=== PATIENT | male | born 1975 | race Caucasian/White ===

== ENCOUNTER 2016-07-09 12:12 | Emergency (ER) | payer SELFPAY ==
--- NOTE | 2016-07-09 13:57 | DIAGNOSTIC IMAGING REPORT ---
PROCEDURE: XR CHEST 2 VIEW INDICATION: CONGESTION TECHNIQUE: PA and lateral views. COMPARISON: Chest 05/26/2011 and 07/10/2009 FINDINGS: There is a new left lower lobe infiltrate. The right lung remains clear. Heart and mediastinum are normal. Thorax is normal. IMPRESSION: 1. New left lower lobe infiltrate
--- NOTE | 2016-07-09 18:01 | ED ORDER SUMMARY ---
..... Patient: JUANJOSE OSBORNE OrderSheet [facility] VisitID: [id number] [address] [place] [address] 41y, M Registration Date/Time: 07/09/2016 ORDER SHEET Weight: 147.4 kg (stated) Allergies: No Known Drug Allergy GENERAL ORDERS: Chest 2V (20 lb weight gain ( edema abdomen, testicles, bilateral edema)) Urgent (13:07/09/2016 JCoates) (13:41 SRoberts R.N.) CBC w Diff Urgent (13:07/09/2016 JCoates) (Ack 13:44 RKaruga) (15:58 SRoberts R.N.) CMP Urgent (:07/09/2016 JCoates) (Ack 13:44 RKaruga) (15:58 SRoberts R.N.) PT with INR Urgent (13:07/09/2016 JCoates) (Ack 13:44 RKaruga) (15:58 SRoberts R.N.) PTT Urgent (13:07/09/2016 JCoates) (Ack 13:44 RKaruga) (15:58 SRoberts R.N.) Troponin-I Urgent (13:07/09/2016 JCoates) (Ack 13:44 RKaruga) (15:58 SRoberts R.N.) UA-Culture if indicated Urgent (13:07/09/2016 JCoates) (Ack 13:44 RKaruga) (16:13 RKaruga) BNP Urgent (13:07/09/2016 JCoates) (Ack 13:44 RKaruga) (15:58 SRoberts R.N.) EKG - ER Stat (13:07/09/2016 JCoates) (13:43 RKaruga) Troponin-I Urgent (16:59 07/09/2016 JCoates) (Ack 17:30 RKaruga) (19:01 SRoberts R.N.) MEDICATION ORDERS: IV FLUIDS: IV NS : initial bolus none -, then TKO - (NOW) (13:07/09/2016 JCoates) (Ack 13:41 SRoberts R.N.) (Cancelled: Physician Order13:43 SRoberts R.N.) IV Saline Lock (13:24 07/09/2016 JCoates) (13:41 SRoberts R.N.) Lasix IV 100 mg (NOW) (15:38 07/09/2016 JCoates) (Ack 15:58 SRoberts R.N.) (16:16 SRoberts R.N.) Rocephin IV 1 gm/50mL (NOW) (15:38 07/09/2016 JCoates) (Ack 15:58 SRoberts R.N.) (16:23 SRoberts R.N.) ORDER SHEET NOTES: [Electronically signed by Taty Mcconnell R.N. (19:06 07/09/2016)] [Electronically signed by Hong Jose (22:55 07/09/2016)] [Electronically locked/signed by Taty Mcconnell R.N. (19:06 07/09/2016)]
--- NOTE | 2016-07-09 18:01 | ED CLINICAL REPORT ---
Clinical Report - Physicians/Mid Levels [facility] [address] [place] [address] 07/09/2016 12:15 Patient: JUANJOSE OSBORNE Time Seen: 13:24. Arrived- By private vehicle. Historian- patient. HISTORY OF PRESENT ILLNESS Chief Complaint: swelling of the abdomen, penis and testicles,and bilateral lower legs. At its maximum, severity described as severe. When seen in the E.D., severity described as severe. Modifying factors. Not worsened by anything. Not relieved by anything. This started 2 weeks ago and is still present but is improving. The patient has had loss of appetite. No weight loss. No decreased urine output. (Patient says about 2 weeks ago he started to get swelling in his abdomen and legs. He currently doesn't have a primary care provider or insurance so he ordered some Lasix online. He says he started this about a week ago. Around the day he started his testicles became swollen and painful. He says the Lasix is helping, however.). Similar symptoms previously: None. Recent medical care: Not recently seen/assessed. REVIEW OF SYSTEMS No chills, fever, ear pain, nasal congestion or sore throat. No calf pain, chest pain, black stools, bloody stools or constipation. No diarrhea, nausea, vomiting, hematuria or penile discharge. No back pain, diabetic symptoms, easy bruising or difficulty with urination. The patient has had a moderate cough (2 weeks ago accompanied by runny nose and sore throat but now better.). He has had abdominal pain, testicular pain, and hesitancy. He has had multiple skin lesions (chronically). All systems otherwise negative, except as recorded above. PAST HISTORY See nurses notes. Hypertension. No history of heart disease, lung disease, renal disease, neurological disease or diabetes mellitus. SOCIAL HISTORY Never smoker. No drug use. ADDITIONAL NOTES The nursing notes have been reviewed. PHYSICAL EXAM Appearance: Alert. No acute distress. Eyes: Pupils equal, round and reactive to light. Eyes normal inspection. ENT: Nose normal. Pharynx normal. Neck: Normal inspection. Neck supple. No JVD or lymphadenopathy. CVS: Tachycardia. Heart sounds normal. Rhythm normal. Respiratory: No respiratory distress. Breath sounds normal. No rales, rhonchi or wheezes. Abdomen: Nontender. Distention with dullness to percussion. Obese. No guarding. Back: Normal inspection. No CVA tenderness. : Severe right-sided and left-sided scrotal swelling with tenderness. No erythema, fluctuance or ulceration. Penile abnormality (Significant edemato include the foreskin.). No tenderness noted. No urethral discharge. Skin: Skin warm and dry. Normal skin turgor. Generalized, erythematous, macular, papular skin rash. No petechial or vesicular skin rash. Neuro: Oriented X 3. No motor deficit. No sensory deficit. LABS, X-RAYS, AND EKG EKG: EKG time: (13:36). No acute ischemia. Tachycardia. LVH. Right axis deviation. Normal ST and T waves. Prior EKG unavailable. The EKG appears to be a good tracing. Chest X-ray: Patchy infiltrate in the left lower lobe. No well-defined infiltrate on the left. Normal heart size. No fracture. Views: PA and lateral. The X-rays were interpreted by the radiologist. Laboratory Tests: UA-Culture if indicated: (FIDELINA: 07/09/2016 16:10) ( MsgRcvd 07/09/2016 16:38) Final results Test Result Flag Units (Reference) URINE COLOR YELLOW URINE APPEARANCE CLEAR URINE GLUCOSE NEGATIVE (NEGATIVE) URINE BILIRUBIN NEGATIVE (NEGATIVE) URINE KETONE NEGATIVE (NEGATIVE) URINE SPECIFIC GRAVITY 1.010 (1.010-1.030) URINE PH 6.5 (5.0-8.0) URINE PROTEIN 1+ (NEGATIVE) URINE UROBILINOGEN 0.2 EU/dL (0.2-1.0) URINE NITRITE NEGATIVE (NEGATIVE) URINE BLOOD NEGATIVE (NEGATIVE) URINE LEUK ESTERASE NEGATIVE (NEGATIVE) URINE RBC NONE SEEN rbc/hpf (0-1) URINE WBC RARE wbc/hpf (0-1) URINE EPITHELIAL CELLS RARE EPI/hpf (0-5) URINE BACTERIA NONE SEEN (NONE SEEN) URINE COMMENT CULT NOT INDICATED URINE CULTURES ARE SET-UP BASED ON THE FOLLOWING CRITERIA:POSITIVE NITRITEPOSITIVE LEUKOCYTE ESTERASEGREATER THAN 10 WHITE BLOOD CELLSMODERATE (2+) OR GREATER BACTERIA CBC w Diff: (FIDELINA: 07/09/2016 13:38) ( [facility] 07/09/2016 13:57) Final results Test Result Flag Units (Reference) WHITE BLOOD COUNT 8.2 K/uL (4.5-11.5) RED BLOOD COUNT 6.15 *H M/uL (4.50-5.90) HEMOGLOBIN 15.4 gm/dL (13.5-17.5) HEMATOCRIT 48.5 % (41.0-53.0) MEAN CELL VOLUME 79 L fL (80-100) MEAN CORPUSCULAR HGB 25 L pg (26-34) MEAN CORPUSCULAR HGB CONC 32 g/dL (31-37) RED CELL DISTRIBUTION WIDTH 17.8 H % (11.6-14.8) PLATELET COUNT 257 K/uL (150-400) NEUTROPHIL % 73.3 % (50-75) LYMPH % 13.6 L % (25-40) MONO % 10.0 % (3-14) EOSINOPHIL % 2.7 % (0-4) BASOPHIL % 0.4 % (0-2) PT with INR: (FIDELINA: 07/09/2016 13:38) ( [facility] 07/09/2016 13:58) Final results Test Result Flag Units (Reference) INR 1.1 (0.8-1.2) Low Intensity Therapy: INR 1.5-2.0 PT range 18.5-23.1Mod.Intensity Therapy: INR 2.0-3.0 PT range 23.1-31.5High Intensity Therapy: INR 2.5-3.5 PT range 27.4-35.5High Intensity Therapy 2: INR 3.0-4.0 PT range 31.5-39.3 APTT 30 SECONDS (24-34) Troponin-I: (FIDELINA: 07/09/2016 17:25) ( [facility] 07/09/2016 17:52) Final results Test Result Flag Units (Reference) TROPONIN I 0.05 ng/mL (0.00-1.5) TROPONIN REFERENCE RANGE:<0.1 NEGATIVE0.1-1.5 INDETERMINANT>1.5 POSITIVE BNP: (FIDELINA: 07/09/2016 13:38) ( MsgRcvd 07/09/2016 14:15) Final results Test Result Flag Units (Reference) B-TYPE NATRIURETIC PEPTIDE 426 H pg/ml (5-100) CMP: (FIDELINA: 07/09/2016 13:38) ( MsgRcvd 07/09/2016 14:20) Final results Test Result Flag Units (Reference) GLUCOSE 146 H mg/dL (70-110) BUN 16 mg/dL (7-18) CREATININE 1.2 mg/dL (0.6-1.3) Estimated GFR >60 mL/min Estimated GFR- >60 mL/min Note: Persistent reduction over 3 months in eGFR<60 mL/min/1.73 m2 defines CKD. Patients with eGFR values>=60 mL/min/1.73 m2 may also have CKD if evidence ofpersistent proteinuria. Additional information may be foundat www.kidney.org. SODIUM 142 mmol/L (136-145) POTASSIUM 3.2 L mmol/L (3.5-5.1) CHLORIDE 101 mmol/L (98-107) CARBON DIOXIDE 33 H mmol/L (21-32) CALCIUM 8.9 mg/dL (8.5-10.1) TOTAL PROTEIN 7.0 g/dL (6.4-8.2) ALBUMIN 3.4 g/dL (3.3-5.0) BILIRUBIN, TOTAL 1.0 mg/dL (0.0-1.0) ALKALINE PHOSPHATASE 65 U/L (46-116) AST (SGOT) 26 U/L (15-37) ALT (SGPT) 29 U/L (12-78) TROPONIN I 0.07 ng/mL (0.00-1.5) TROPONIN REFERENCE RANGE:<0.1 NEGATIVE0.1-1.5 INDETERMINANT>1.5 POSITIVE . PROGRESS AND PROCEDURES Course of Care: 13:24. His concern is his testicles but his main issue is new-onset significant edema. He'll unfortunately need a significant workup to look for an identifiable cause. He denies any previous symptoms of chest pain, hemoptysisor sudden onset shortness of breath. No previous history of renal/liver disease. 15:30 07/09/16. Left lower lobe hazy infiltrate. BNP is also slightly elevated. Waiting to see if he can urinate. If so, we'll push IV Lasix. 16:59 07/09/16. He is getting Lasix and still waiting on the UA results. Will repeat troponin prior to discharge. 17:52 07/09/16. Repeat troponin still within normal limits. Doubt dropping troponin but he still should probably see cardiology as an outpatient. 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 He has multiple possible causes for his edema to include CHF, renal disease untreated hypertension or malignancy and we discussed all other possible causes and why he needs to follow-up for further evaluation. Patient says he'll follow-upby phone tomorrow. I'll give him the contact information for nephrology as well that he should probably also see cardiology as recommended by his primary care provider. Disposition: Discharged in stable condition. CLINICAL IMPRESSION Pneumonia. Atypical presentation with a delayed diagnosis. Vital signs recorded and reviewed; empiric antibiotics given in the ED. Mild hyperglycemia Uncontrolled hypertension. Hypokalemia (1) Peripheral edema, etiology unclear). (proteinuria). INSTRUCTIONS Rest at home for two days. No dietary restrictions. Warnings: Further evaluation is necessary in order to assess the possibility of serious illness. It is very important to follow up with a physician. GENERAL WARNINGS: Return or contact your physician immediately if your condition worsens or changes unexpectedly, if not improving as expected, or if other problems arise. Specifically return if vomiting, breathing difficulty or fever worsens. Prescription Medications: Lasix 40 mg: take 1 orally every 12 hours. Dispense twenty (20). No refills. Substitution is permissible. Doxycycline 100 mg: Take 1 capsule orally every 12 hours for 10 days. No refill. Potassium Chloride 20 mEq: take 1 orally every 12 hours - Dispense twenty (20) No refills. Follow-up: Return to the emergency department in two days if not better. Understanding of the discharge instructions verbalized by patient. Follow-up with: Jose Curz Hope MD, Neurology, , [phone], [place], [phone] Follow up even if well. Call for the next available appointment. Follow-up with: [facility], , , [address], [place], [id number] Follow up tomorrow even if well. Call for the next available appointment. Summary of care provided to patient and follow-up provider via fax. (Electronically signed by Hong Jose, 07/09/2016 22:55)
--- NOTE | 2016-07-09 18:01 | ED ORDER SUMMARY ---
..... Patient: JUANJOSE OSBORNE OrderSheet [facility] VisitID: [id number] [address] [place] [address] 41y, M Registration Date/Time: 07/09/2016 ORDER SHEET Weight: 147.4 kg (stated) Allergies: No Known Drug Allergy GENERAL ORDERS: Chest 2V (20 lb weight gain ( edema abdomen, testicles, bilateral edema)) Urgent (13:07/09/2016 JCoates) (13:41 SRoberts R.N.) CBC w Diff Urgent (13:07/09/2016 JCoates) (Ack 13:44 RKaruga) (15:58 SRoberts R.N.) CMP Urgent (:07/09/2016 JCoates) (Ack 13:44 RKaruga) (15:58 SRoberts R.N.) PT with INR Urgent (13:07/09/2016 JCoates) (Ack 13:44 RKaruga) (15:58 SRoberts R.N.) PTT Urgent (13:07/09/2016 JCoates) (Ack 13:44 RKaruga) (15:58 SRoberts R.N.) Troponin-I Urgent (13:07/09/2016 JCoates) (Ack 13:44 RKaruga) (15:58 SRoberts R.N.) UA-Culture if indicated Urgent (13:07/09/2016 JCoates) (Ack 13:44 RKaruga) (16:13 RKaruga) BNP Urgent (13:07/09/2016 JCoates) (Ack 13:44 RKaruga) (15:58 SRoberts R.N.) EKG - ER Stat (13:07/09/2016 JCoates) (13:43 RKaruga) Troponin-I Urgent (16:59 07/09/2016 JCoates) (Ack 17:30 RKaruga) (19:01 SRoberts R.N.) MEDICATION ORDERS: IV FLUIDS: IV NS : initial bolus none -, then TKO - (NOW) (13:07/09/2016 JCoates) (Ack 13:41 SRoberts R.N.) (Cancelled: Physician Order13:43 SRoberts R.N.) IV Saline Lock (13:24 07/09/2016 JCoates) (13:41 SRoberts R.N.) Lasix IV 100 mg (NOW) (15:38 07/09/2016 JCoates) (Ack 15:58 SRoberts R.N.) (16:16 SRoberts R.N.) Rocephin IV 1 gm/50mL (NOW) (15:38 07/09/2016 JCoates) (Ack 15:58 SRoberts R.N.) (16:23 SRoberts R.N.) ORDER SHEET NOTES: [Electronically signed by Taty Mcconnell R.N. (19:06 07/09/2016)] [Electronically signed by Hong Jose (22:55 07/09/2016)] [Electronically locked/signed by Taty Mcconnell R.N. (19:06 07/09/2016)]
--- NOTE | 2016-07-09 18:01 | ED NURSING NOTES ---
Clinical Report - Nurses [facility] [address] [place] [address] 07/09/2016 12:15 Patient: JUANJOSE OSBORNE TRIAGE Triage time 1220. Acuity: LEVEL 3. Chief Complaint: TESTICULAR PAIN. Alert. SWAPAN COMA SCORE: Swapna Coma Scale: 15- eyes open spontaneously (4); best verbal response- oriented x 4 (5); best motor response- obeys commands (6). --12:30 Nusrat Brandon R.N. 12:25 07/09/16. BP: 183/145. HR: 125. RR: 22 (unlabored). O2 saturation: 94% on room air. Temp: 98 F (oral). Pain level now: 06/19. --12:30 Nusrat Brandon R.N. Weight: 147.4 kg stated. Height/Length: 70 inches Per Patient. BMI: 46.6. --12:20 Nusrat Brandon R.N. Medications Furosemide Oral 40 mg, 2x a day. --12:27 Nusrat Brandon R.N. Allergies No Known Drug Allergy. --12:27 Nusrat Brandon R.N. Medication/allergy information source: the patient. --12:30 Nusrat Brandon R.N. History Historian: family. Primary physician (none). ( pt c/o testicular pain x 6 days. pt states discomfort began last Wednesday and swelling noted by Wednesday.). Onset. (6 days ago). He has had testicular pain. Treatment FUND DEVELOPMENT MANAGER: None. SOCIAL HX: Never smoker. No alcohol use or drug use. ABUSE ASSESSMENT: No report of abuse. FALL RISK ASSESSMENT: Fall risk assessment completed. No fall risk identified. NUTRITIONAL RISK ASSESSMENT: The nutritional risk assessment revealed no deficiencies. FUNCTIONAL ASSESSMENT: Functional assessment: no impairments noted. LEARNING NEEDS ASSESSMENT: The learning needs assessment revealed no barriers. SKIN INTEGRITY ASSESSMENT: Skin integrity risk assessment completed. No skin integrity risk identified. --12:30 Nusrat Brandon R.N. PROBLEMS: Sinus Problems. Dental Abscess. Dental Caries. Bronchitis. Immunizations. Gastroesophageal Reflux. Bowel Obstruction. Hypertension. --12:28 Nusrat Brandon R.N. Sleep Apnea [RuleOut]. --12:28 Nusrat Brandon R.N. ADDITIONAL SURGERIES: Hernia Repair. Umbilical Hernia Repair. --12:28 Nusrat Brandon R.N. Interventions ID band on patient. To treatment room. --12:30 Nusrat Brandon R.N. PHYSICAL ASSESSMENT 12:30 pt c/o testicular pain and swelling. Deferred assessment to MD. Ambulatory to room. GENERAL / NEURO / PSYCH: Alert. Oriented X 4. Appears in no acute distress. HEENT: Mucous membranes are pink. RESPIRATORY: Respirations not labored. SKIN: Skin is warm and dry. --12:40 Nusrat Brandon R.N. NURSING PROGRESS NOTES Patient gowned. Head of bed elevated. Two patient identifiers checked. Call light placed in reach. Side rails up x 1. Bed placed in lowest position. Brakes of bed on. Patient ready for evaluation. --12:30 Nusrat Brandon R.N. 13:41 07/09/2016 Site #1 started via IV in the left hand with an 20g angiocath, with aseptic technique and good blood return; one attempt. Blood drawn: rainbow set. Labeled in the presence of the patient and sent to the lab. Saline lock flushed with 10 mL saline. --13:41 Taty Mcconnell R.N. EKG time: (13:36). EKG was performed by a tech and shown to the ED physician. --13:57 Estephania Madrigal 16:06 07/09/2016 Started 1 gm of Rocephin (CefTRIAXone Sodium) IVPB in bag #1 50 mL; at 50 mL/hr over 20 minute(s) via site #1 via IV pump. Allergies verified and confirmed 5 rights. IV patency established. IV site checked: no pain, redness, or swelling. IV flushed thoroughly pre- and post-medication administration. --16:23 Taty Mcconnell R.N. 16:15 07/09/16. Patient ID band checked for patient name: patient confirmed. Instructions provided to collect clean catch urine and patient verbalized understanding. Clean catch urine collected with return of yellow-colored clear urine; sample sent to lab for urinalysis and culture. Specimen labeled in the presence of the patient. --16:15 Taty Mcconnell R.N. <<STRICKEN ENTRY-- 16:16 07/09/2016 Started 100 mg of Lasix IVPB in bag #1 100 mL; at 100 mL/hr over 1 hour(s) via site #1 via IV pump. Allergies verified and confirmed 5 rights. IV patency established. IV site checked: no pain, redness, or swelling. IV flushed thoroughly pre- and post-medication administration. --16:16 Taty Mcconnell R.N. --END STRIKE>> Correction. --16:24 Taty Mcconnell R.N. 16:16 07/09/2016 Started 100 mg of Lasix IVPB in bag #1 100 mL; at 100 mL/hr over 15 minute(s) via site #1 via IV pump. Allergies verified and confirmed 5 rights. IV patency established. IV site checked: no pain, redness, or swelling. IV flushed thoroughly pre- and post-medication administration. --16:24 Taty Mcconnell R.N. 16:42 07/09/2016 Lasix IVPB Discontinued: bag #1 completed. Total amount infused: 100 mL. IV patency established. IV site checked: no pain, redness, or swelling. IV flushed thoroughly. --16:42 Taty Mcconnell R.N. 16:43 07/09/2016 Rocephin IVPB Discontinued: bag #1 infused. Total amount infused: 50 mL. IV patency established. IV site checked: no pain, redness, or swelling. IV flushed thoroughly. --16:44 Taty Mcconnell R.N. ( Patient up and ambulating to the bathroom. steady gait.). --16:46 Taty Mcconnell R.N. 17:25. Patient ID band checked for patient name and birthdate: patient confirmed. Blood samples drawn from the right hand with 22g butterfly by tech per protocol ; labeled in presence of the patient and sent to lab: [facility]. --17:45 Estephania Madrigal. DISPOSITION / DISCHARGE 19:01 07/09/2016 Site #1 removed upon discharge. Catheter intact. Bandaid applied. --19:02 Taty Mcconnell R.N. Condition at departure: improved. No learning barriers present. Reviewed medication(s) side effects, precautions, dosing and course information. Prescription(s) given to the patient. Patient verbalized understanding. Written instructions provided in Malagasy. The patient was discharged home and accompanied by family. He left the Emergency Department ambulatory and via private vehicle. Family member driving. Medication list reviewed and validated. --19:05 Taty Mcconnell R.N. 19:04 07/09/16. BP: 198/89. HR: 99. RR: 20. O2 saturation: 97%. Temp: deferred. Pain level now: 06/19. 18:03 07/09/16. BP: 189/99. HR: 79. RR: 22. O2 saturation: 98%. Temp: deferred. Pain level now: 10/17. 16:12 07/09/16. BP: 199/120. HR: 99. RR: 20. O2 saturation: 96% on room air. 14:34 07/09/16. BP: 204/145. HR: 95. RR: 20. O2 saturation: 98% on room air. 12:25 07/09/16. BP: 183/145. HR: 125. RR: 22 (unlabored). O2 saturation: 94% on room air. Temp: 98 F (oral). Pain level now: 06/19. --19:05 Taty Mcconnell R.N. ( Provider aware of the vs, elevated b/p.). --19:06 Taty Mcconnell R.N. Locked/Released at 07/09/2016 19:06 by Taty Mcconnell R.N.
--- NOTE | 2016-07-09 18:01 | ED CLINICAL REPORT ---
Clinical Report - Physicians/Mid Levels [facility] [address] [place] [address] 07/09/2016 12:15 Patient: JUANJOSE OSBORNE Time Seen: 13:24. Arrived- By private vehicle. Historian- patient. HISTORY OF PRESENT ILLNESS Chief Complaint: swelling of the abdomen, penis and testicles,and bilateral lower legs. At its maximum, severity described as severe. When seen in the E.D., severity described as severe. Modifying factors. Not worsened by anything. Not relieved by anything. This started 2 weeks ago and is still present but is improving. The patient has had loss of appetite. No weight loss. No decreased urine output. (Patient says about 2 weeks ago he started to get swelling in his abdomen and legs. He currently doesn't have a primary care provider or insurance so he ordered some Lasix online. He says he started this about a week ago. Around the day he started his testicles became swollen and painful. He says the Lasix is helping, however.). Similar symptoms previously: None. Recent medical care: Not recently seen/assessed. REVIEW OF SYSTEMS No chills, fever, ear pain, nasal congestion or sore throat. No calf pain, chest pain, black stools, bloody stools or constipation. No diarrhea, nausea, vomiting, hematuria or penile discharge. No back pain, diabetic symptoms, easy bruising or difficulty with urination. The patient has had a moderate cough (2 weeks ago accompanied by runny nose and sore throat but now better.). He has had abdominal pain, testicular pain, and hesitancy. He has had multiple skin lesions (chronically). All systems otherwise negative, except as recorded above. PAST HISTORY See nurses notes. Hypertension. No history of heart disease, lung disease, renal disease, neurological disease or diabetes mellitus. SOCIAL HISTORY Never smoker. No drug use. ADDITIONAL NOTES The nursing notes have been reviewed. PHYSICAL EXAM Appearance: Alert. No acute distress. Eyes: Pupils equal, round and reactive to light. Eyes normal inspection. ENT: Nose normal. Pharynx normal. Neck: Normal inspection. Neck supple. No JVD or lymphadenopathy. CVS: Tachycardia. Heart sounds normal. Rhythm normal. Respiratory: No respiratory distress. Breath sounds normal. No rales, rhonchi or wheezes. Abdomen: Nontender. Distention with dullness to percussion. Obese. No guarding. Back: Normal inspection. No CVA tenderness. : Severe right-sided and left-sided scrotal swelling with tenderness. No erythema, fluctuance or ulceration. Penile abnormality (Significant edemato include the foreskin.). No tenderness noted. No urethral discharge. Skin: Skin warm and dry. Normal skin turgor. Generalized, erythematous, macular, papular skin rash. No petechial or vesicular skin rash. Neuro: Oriented X 3. No motor deficit. No sensory deficit. LABS, X-RAYS, AND EKG EKG: EKG time: (13:36). No acute ischemia. Tachycardia. LVH. Right axis deviation. Normal ST and T waves. Prior EKG unavailable. The EKG appears to be a good tracing. Chest X-ray: Patchy infiltrate in the left lower lobe. No well-defined infiltrate on the left. Normal heart size. No fracture. Views: PA and lateral. The X-rays were interpreted by the radiologist. Laboratory Tests: UA-Culture if indicated: (FIDELINA: 07/09/2016 16:10) ( MsgRcvd 07/09/2016 16:38) Final results Test Result Flag Units (Reference) URINE COLOR YELLOW URINE APPEARANCE CLEAR URINE GLUCOSE NEGATIVE (NEGATIVE) URINE BILIRUBIN NEGATIVE (NEGATIVE) URINE KETONE NEGATIVE (NEGATIVE) URINE SPECIFIC GRAVITY 1.010 (1.010-1.030) URINE PH 6.5 (5.0-8.0) URINE PROTEIN 1+ (NEGATIVE) URINE UROBILINOGEN 0.2 EU/dL (0.2-1.0) URINE NITRITE NEGATIVE (NEGATIVE) URINE BLOOD NEGATIVE (NEGATIVE) URINE LEUK ESTERASE NEGATIVE (NEGATIVE) URINE RBC NONE SEEN rbc/hpf (0-1) URINE WBC RARE wbc/hpf (0-1) URINE EPITHELIAL CELLS RARE EPI/hpf (0-5) URINE BACTERIA NONE SEEN (NONE SEEN) URINE COMMENT CULT NOT INDICATED URINE CULTURES ARE SET-UP BASED ON THE FOLLOWING CRITERIA:POSITIVE NITRITEPOSITIVE LEUKOCYTE ESTERASEGREATER THAN 10 WHITE BLOOD CELLSMODERATE (2+) OR GREATER BACTERIA CBC w Diff: (FIDELINA: 07/09/2016 13:38) ( [facility] 07/09/2016 13:57) Final results Test Result Flag Units (Reference) WHITE BLOOD COUNT 8.2 K/uL (4.5-11.5) RED BLOOD COUNT 6.15 *H M/uL (4.50-5.90) HEMOGLOBIN 15.4 gm/dL (13.5-17.5) HEMATOCRIT 48.5 % (41.0-53.0) MEAN CELL VOLUME 79 L fL (80-100) MEAN CORPUSCULAR HGB 25 L pg (26-34) MEAN CORPUSCULAR HGB CONC 32 g/dL (31-37) RED CELL DISTRIBUTION WIDTH 17.8 H % (11.6-14.8) PLATELET COUNT 257 K/uL (150-400) NEUTROPHIL % 73.3 % (50-75) LYMPH % 13.6 L % (25-40) MONO % 10.0 % (3-14) EOSINOPHIL % 2.7 % (0-4) BASOPHIL % 0.4 % (0-2) PT with INR: (FIDELINA: 07/09/2016 13:38) ( [facility] 07/09/2016 13:58) Final results Test Result Flag Units (Reference) INR 1.1 (0.8-1.2) Low Intensity Therapy: INR 1.5-2.0 PT range 18.5-23.1Mod.Intensity Therapy: INR 2.0-3.0 PT range 23.1-31.5High Intensity Therapy: INR 2.5-3.5 PT range 27.4-35.5High Intensity Therapy 2: INR 3.0-4.0 PT range 31.5-39.3 APTT 30 SECONDS (24-34) Troponin-I: (FIDELINA: 07/09/2016 17:25) ( [facility] 07/09/2016 17:52) Final results Test Result Flag Units (Reference) TROPONIN I 0.05 ng/mL (0.00-1.5) TROPONIN REFERENCE RANGE:<0.1 NEGATIVE0.1-1.5 INDETERMINANT>1.5 POSITIVE BNP: (FIDELINA: 07/09/2016 13:38) ( MsgRcvd 07/09/2016 14:15) Final results Test Result Flag Units (Reference) B-TYPE NATRIURETIC PEPTIDE 426 H pg/ml (5-100) CMP: (FIDELINA: 07/09/2016 13:38) ( MsgRcvd 07/09/2016 14:20) Final results Test Result Flag Units (Reference) GLUCOSE 146 H mg/dL (70-110) BUN 16 mg/dL (7-18) CREATININE 1.2 mg/dL (0.6-1.3) Estimated GFR >60 mL/min Estimated GFR- >60 mL/min Note: Persistent reduction over 3 months in eGFR<60 mL/min/1.73 m2 defines CKD. Patients with eGFR values>=60 mL/min/1.73 m2 may also have CKD if evidence ofpersistent proteinuria. Additional information may be foundat www.[email or web address].org. SODIUM 142 mmol/L (136-145) POTASSIUM 3.2 L mmol/L (3.5-5.1) CHLORIDE 101 mmol/L (98-107) CARBON DIOXIDE 33 H mmol/L (21-32) CALCIUM 8.9 mg/dL (8.5-10.1) TOTAL PROTEIN 7.0 g/dL (6.4-8.2) ALBUMIN 3.4 g/dL (3.3-5.0) BILIRUBIN, TOTAL 1.0 mg/dL (0.0-1.0) ALKALINE PHOSPHATASE 65 U/L (46-116) AST (SGOT) 26 U/L (15-37) ALT (SGPT) 29 U/L (12-78) TROPONIN I 0.07 ng/mL (0.00-1.5) TROPONIN REFERENCE RANGE:<0.1 NEGATIVE0.1-1.5 INDETERMINANT>1.5 POSITIVE . PROGRESS AND PROCEDURES Course of Care: 13:24. His concern is his testicles but his main issue is new-onset significant edema. He'll unfortunately need a significant workup to look for an identifiable cause. He denies any previous symptoms of chest pain, hemoptysisor sudden onset shortness of breath. No previous history of renal/liver disease. 15:30 07/09/16. Left lower lobe hazy infiltrate. BNP is also slightly elevated. Waiting to see if he can urinate. If so, we'll push IV Lasix. 16:59 07/09/16. He is getting Lasix and still waiting on the UA results. Will repeat troponin prior to discharge. 17:52 07/09/16. Repeat troponin still within normal limits. Doubt dropping troponin but he still should probably see cardiology as an outpatient. 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 He has multiple possible causes for his edema to include CHF, renal disease untreated hypertension or malignancy and we discussed all other possible causes and why he needs to follow-up for further evaluation. Patient says he'll follow-upby phone tomorrow. I'll give him the contact information for nephrology as well that he should probably also see cardiology as recommended by his primary care provider. Disposition: Discharged in stable condition. CLINICAL IMPRESSION Pneumonia. Atypical presentation with a delayed diagnosis. Vital signs recorded and reviewed; empiric antibiotics given in the ED. Mild hyperglycemia Uncontrolled hypertension. Hypokalemia (1) Peripheral edema, etiology unclear). (proteinuria). INSTRUCTIONS Rest at home for two days. No dietary restrictions. Warnings: Further evaluation is necessary in order to assess the possibility of serious illness. It is very important to follow up with a physician. GENERAL WARNINGS: Return or contact your physician immediately if your condition worsens or changes unexpectedly, if not improving as expected, or if other problems arise. Specifically return if vomiting, breathing difficulty or fever worsens. Prescription Medications: Lasix 40 mg: take 1 orally every 12 hours. Dispense twenty (20). No refills. Substitution is permissible. Doxycycline 100 mg: Take 1 capsule orally every 12 hours for 10 days. No refill. Potassium Chloride 20 mEq: take 1 orally every 12 hours - Dispense twenty (20) No refills. Follow-up: Return to the emergency department in two days if not better. Understanding of the discharge instructions verbalized by patient. Follow-up with: Jose Cruz Hope MD, Neurology, , [id number], [place], [id number] Follow up even if well. Call for the next available appointment. Follow-up with: [facility], , , [address], [place], [address] Follow up tomorrow even if well. Call for the next available appointment. Summary of care provided to patient and follow-up provider via fax. (Electronically signed by Hong Jose, 07/09/2016 22:55)
--- NOTE | 2016-07-09 22:55 | ED MAR SUMMARY ---
..... Medication Administration Record [facility] [address] [place] [address] Patient: JUANJOSE OSBORNE Visit ID: [id number] 41y, M Weight: 147.4 kg Height/Length: 70 in BMI: 46.6 ALLERGIES: No Known Drug Allergy Start 16:06 07/09/2016 Taty Mcconnell R.N., Stop 16:43 07/09/2016 Taty Mcconnell R.N. Medication Administered: ROCEPHIN [IVPB] (CEFTRIAXONE SODIUM), Dose: 1 gm IVPB over 20 minute(s), Rate: 50 mL/hr, Dispensed: 50 mL bag, Site: #1 left hand. Medication Ordered: Rocephin IV 1 gm/50mL (NOW). Start 16:16 07/09/2016 Taty Mcconnell R.N., Stop 16:42 07/09/2016 Taty Mcconnell R.N. Medication Administered: LASIX [IVPB], Dose: 100 mg IVPB over 15 minute(s), Rate: 100 mL/hr, Dispensed: 100 mL bag, Site: #1 left hand. Medication Ordered: Lasix IV 100 mg (NOW).
--- NOTE | 2016-07-09 22:55 | ED DISCHARGE INSTRUCTIONS ---
Patient: JUANJOSE OSBORNE General Instructions [facility] VisitID: [id number] [address] [place] [address] 41y, M Registration Date/Time: 07/09/2016 Pneumonia. Atypical presentation with a delayed diagnosis. Vital signs recorded and reviewed; empiric antibiotics given in the ED. Mild hyperglycemia Uncontrolled hypertension. Hypokalemia (1) Peripheral edema, etiology unclear). (proteinuria). INSTRUCTIONS Rest at home for two days. No dietary restrictions. Warnings: Further evaluation is necessary in order to assess the possibility of serious illness. It is very important to follow up with a physician. GENERAL WARNINGS: Return or contact your physician immediately if your condition worsens or changes unexpectedly, if not improving as expected, or if other problems arise. Specifically return if vomiting, breathing difficulty or fever worsens. Prescription Medications: Lasix 40 mg: take 1 orally every 12 hours. Dispense twenty (20). No refills. Substitution is permissible. Doxycycline 100 mg: Take 1 capsule orally every 12 hours for 10 days. No refill. Potassium Chloride 20 mEq: take 1 orally every 12 hours - Dispense twenty (20) No refills. Follow-up: Return to the emergency department in two days if not better. Understanding of the discharge instructions verbalized by patient. Follow-up with: Jose Cruz Hope MD, Neurology, , [address] [place], [id number] Follow up even if well. Call for the next available appointment. Follow-up with: [facility], , , [address], [place], [address] Follow up tomorrow even if well. Call for the next available appointment. Summary of care provided to patient and follow-up provider via fax. ADDITIONAL INFORMATION Diabetes with High Blood Sugar You have been treated for high blood sugar (hyperglycemia). This may be becauseof an infection or other illness;eating too many sweets or starches ; not taking enough insulin. Home care High blood sugar may cause symptoms that you can learn to recognize, such as these: If you feel like your blood sugar may be too high, measure it using a blood or urine test. If it is above your usual range, use the "sliding scale"rRegular insulin dose your doctor gave you to correct this. If no "sliding scale" orders were given, contact your doctor for further advice. If your blood sugar is over 300, and you can't reach your doctor, go to the hospital emergency room. Monitor and write down your blood sugars - and insulin dose, if you take insulin - atleast twice a day. Do this before breakfast and before dinner. Do this for the next 3 to 5 days. Follow-up care Follow up with your health care provderduring the next week to review your blood sugar records. You will find out if you need to adjust your dose of insulin or other medicine for blood sugar. When to seek medical care Get prompt medical attention if either of these occur: High blood sugar.Symptoms are frequent urination, feeling dizzy, thirst, headache, nausea or vomiting, abdominal pain, and drowsiness or loss of consciousness. Low blood sugar. Symptoms are fatigue, headache, shakes, excess sweating, hunger, anxiety, reduced vision, drowsiness, weakness, confusion or loss of consciousness, and seizure. High Blood Pressure -- New (Begin Tx) Your blood pressure was high enough today to start treatment with medicines. The cause of hypertension is unknown in most cases, but can be controlled with lifestyle changes and/or medicines. Hypertension may cause headache, dizziness, blurred vision, rushing sound in your ears, chest pain or shortness of breath. Sometimes it causes no symptoms at all. However, untreated hypertension increases the risk of heart attack, also known as acute myocardial infarction, or AMI, and stroke. It is a serious health risk and should not be ignored. A normal blood pressure is 120/80 or less. The first (top) number is the "systolic" pressure. The second (bottom) number is the "diastolic" pressure. Hypertension exists when either the top number is 140 or higher, OR the bottom number is 90 or higher on repeated measurements. Home Care: All patients with hypertension should do the following to lower their pressure. If you are on medicines, then these methods may reduce or eliminate your need for medicine in the future. Begin a weight loss program if you are overweight. Reduce your salt intake. Avoid high salt foods (olives, pickles, smoked meats, salted potato chips, etc.). Do not add salt to your food at the table. Use only small amounts of salt when cooking. Begin an exercise program. Discuss with your doctor what type of exercise program would be best for you. It doesn't have to be difficult. Even brisk walking for 20 minutes three times a week is a good form of exercise. Avoid medicines which contain heart stimulants. This includes many cold and sinus decongestant pills and sprays as well as diet pills. Check the warnings about hypertension on the label. Stimulants such as amphetamine or cocaine could be lethal for someone with hypertension. Never take these. Limit your caffeine intake or switch to caffeine-free products. Stop smoking. If you are a long-time smoker, this can be hard. Enroll in a stop-smoking program to improve your chance of success. Talk to your physician about ways to improve your chance of success. Learning how to handle stress better is an important part of any program to lower blood pressure. Learn about relaxation methods such as meditation, yoga, or biofeedback. If medicines were prescribed, take them exactly as directed. Missing doses may cause your blood pressure to get out of control. Consider buying an automatic blood pressure machine (available at many pharmacies). Use this to monitor your blood pressure and report to your doctor. Follow Up: Because a new blood pressure medicine was started today, it is important that you have your blood pressure rechecked to be sure you are responding well and that there are no serious side effects. Unless told otherwise, follow-up with your doctor or this facility within the next THREE DAYS. Get Prompt Medical Attention if any of the following occur: Chest pain or shortness of breath Severe headache Throbbing or rushing sound in the ears Nosebleed Sudden severe abdominal pain Extreme drowsiness, confusion or fainting Dizziness or vertigo (dizziness with spinning sensation) Weakness of an arm or leg or one side of the face Difficulty with speech or vision Hypokalemia Hypokalemia means a low level of potassium in the blood. This most often occurs in patients who take diuretics (water pills). It can also occur due to severe vomiting or diarrhea. A mild case usually causes no symptoms. It is only found with blood testing. More severe potassium loss causes generalized weakness, muscle or abdominal cramping, heart palpitations (rapid or irregular heartbeats) and low blood pressure. Home Care: 1) Take any potassium supplements prescribed. 2) Eat foods rich in potassium. The highest amount is found in artichoke, baked potatoes, spinach, cantaloupe, honeydew melon, cod, halibut, salmon, and scallops. White, red, or partida beans are also very good sources. A modest amount is found in orange juice, bananas, carrots, and tomato juice. 3) Certain types of diuretics (water pills), such as Lasix (furosemide), require that you take potassium supplements for as long as you take the diuretic pills. If you are taking a diuretic, discuss the need for potassium supplements with your doctor. Follow Up with your doctor for a repeat blood test within the next week or as advised by our staff. Get Prompt Medical Attention if any of the following occur: -- Increased weakness -- Feeling dizzy -- Irregular heartbeat, extra beats or very fast heart rate -- Fainting spell Pneumonia (Adult) Pneumonia is an infection deep within the lung, in the small air sacs (alveoli). It may be due to a virus or bacteria and is usually treated with an antibiotic. Severe cases require treatment in the hospital. Milder cases can be treated at home. Symptoms usually start to improve during the first2 days of treatment. Home Care: Rest at home for the first 23 days or until you feel stronger. When resuming activity, dont let yourself become overly tired. Avoid exposure to cigarette smoke (yours or others). You may use acetaminophen (Tylenol) or ibuprofen (Motrin, Advil) to control fever or pain, unless another medicine was prescribed. [NOTE: If you have chronic liver or kidney disease or ever had a stomach ulcer or GI bleeding, talk with your doctor before using these medicines.] (Aspirin should never be used in anyone under 18 years of age who is ill with a fever. It may cause severe liver damage.) Your appetite may be poor so a light diet is fine. Keep well hydrated by drinking 68 glasses of fluids per day (water, sport drinks such as Gatorade, sodas without caffeine, juices, tea, soup, etc.). This will help loosen secretions in the lung, making it easier for you to cough up the phlegm (sputum). If you also have heart or kidney disease, check with your doctor before you drink extra amounts of fluids. Finish all antibiotic medicine prescribed, even if you are feeling better after a few days. Follow Up with your doctor in the next 23 days (or as advised) to be sure you are responding properly to the medicine. [NOTE: If you are age 65 or older, or if you have chronic lung disease (asthma, emphysema or COPD), we recommendthe pneumococcal vaccination and a yearlyinfluenzavaccination(flu-shot) every . Ask your doctor about this.] Get Prompt Medical Attention if any of the following occur: Not getting better within the first 48 hours of treatment Increasing shortness of breath or rapid breathing (over 25 breaths/minute) Coughing up blood or increasing chest pain with breathing Fever of 100.4F (38C) oral or higher, not better with fever medication Increasing weakness, dizziness or fainting Increasing thirst or dry mouth Sinus pain, headache or a stiff neck Chest pain not caused by coughing Furosemide Oral tablet What is this medicine? FUROSEMIDE (fyoor [place] se mide) is a diuretic. It helps you make more urine and to lose salt and excess water from your body. This medicine is used to treat high blood pressure, and edema or swelling from heart, kidney, or liver disease. How should I use this medicine? Take this medicine by mouth with a glass of water. Follow the directions on the prescription label. You may take this medicine with or without food. If it upsets your stomach, take it with food or milk. Do not take your medicine more often than directed. Remember that you will need to pass more urine after taking this medicine. Do not take your medicine at a time of day that will cause you problems. Do not take at bedtime. Talk to your residential insurance inspector regarding the use of this medicine in children. While this drug may be prescribed for selected conditions, precautions do apply. What side effects may I notice from receiving this medicine? Side effects that you should report to your doctor or health infant childcare provider as soon as possible: blood in urine or stools dry mouth fever or chills hearing loss or ringing in the ears irregular heartbeat muscle pain or weakness, cramps skin rash stomach upset, pain, or nausea tingling or numbness in the hands or feet unusually weak or tired vomiting or diarrhea yellowing of the eyes or skin Side effects that usually do not require medical attention (report to your doctor or health infant childcare provider if they continue or are bothersome): headache loss of appetite unusual bleeding or bruising What may interact with this medicine? aspirin and aspirin-like medicines certain antibiotics chloral hydrate cisplatin cyclosporine digoxin diuretics laxatives lithium medicines for blood pressure medicines that relax muscles for surgery methotrexate NSAIDs, medicines for pain and inflammation like ibuprofen, naproxen, or indomethacin phenytoin steroid medicines like prednisone or cortisone sucralfate What if I miss a dose? If you miss a dose, take it as soon as you can. If it is almost time for your next dose, take only that dose. Do not take double or extra doses. Where should I keep my medicine? Keep out of the reach of children. Store at room temperature between 15 and 30 degrees C (59 and 86 degrees F). Protect from light. Throw away any unused medicine after the expiration date. What should I tell my health care provider before I take this medicine? They need to know if you have any of these conditions: abnormal blood electrolytes diarrhea or vomiting gout heart disease kidney disease, small amounts of urine, or difficulty passing urine liver disease an unusual or allergic reaction to furosemide, sulfa drugs, other medicines, foods, dyes, or preservatives or trying to get breast-feeding What should I watch for while using this medicine? Visit your doctor or health infant childcare provider for regular checks on your progress. Check your blood pressure regularly. Ask your doctor or health infant childcare provider what your blood pressure should be, and when you should contact him or her. If you are a diabetic, check your blood sugar as directed. You may need to be on a special diet while taking this medicine. Check with your doctor. Also, ask how many glasses of fluid you need to drink a day. You must not get dehydrated. You may get drowsy or dizzy. Do not drive, use machinery, or do anything that needs mental alertness until you know how this drug affects you. Do not stand or sit up quickly, especially if you are an older patient. This reduces the risk of dizzy or fainting spells. Alcohol can make you more drowsy and dizzy. Avoid alcoholic drinks. This medicine can make you more sensitive to the sun. Keep out of the sun. If you cannot avoid being in the sun, wear protective clothing and use sunscreen. Do not use sun lamps or tanning beds/booths. Doxycycline Monohydrate Oral tablet What is this medicine? DOXYCYCLINE (dox reginaldo armstrong) is a tetracycline antibiotic. It kills certain bacteria or stops their growth. It is used to treat many kinds of infections, like dental, skin, respiratory, and urinary tract infections. It also treats acne, Lyme disease, malaria, and certain sexually transmitted infections. How should I use this medicine? Take this medicine by mouth with a full glass of water. Follow the directions on the prescription label. It is best to take this medicine without food, but if it upsets your stomach take it with food. Take your medicine at regular intervals. Do not take your medicine more often than directed. Take all of your medicine as directed even if you think you are better. Do not skip doses or stop your medicine early. Talk to your residential insurance inspector regarding the use of this medicine in children. Special care may be needed. While this drug may be prescribed for children as young as 8 years old for selected conditions, precautions do apply. What side effects may I notice from receiving this medicine? Side effects that you should report to your doctor or health infant childcare provider as soon as possible: allergic reactions like skin rash, itching or hives, swelling of the face, lips, or tongue difficulty breathing fever itching in the rectal or genital area pain on swallowing redness, blistering, peeling or loosening of the skin, including inside the mouth severe stomach pain or cramps unusual bleeding or bruising unusually weak or tired yellowing of the eyes or skin Side effects that usually do not require medical attention (report to your doctor or health infant childcare provider if they continue or are bothersome): diarrhea loss of appetite nausea, vomiting What may interact with this medicine? antacids barbiturates control pills bismuth subsalicylate carbamazepine methoxyflurane other antibiotics phenytoin vitamins that contain iron warfarin What if I miss a dose? If you miss a dose, take it as soon as you can. If it is almost time for your next dose, take only that dose. Do not take double or extra doses. Where should I keep my medicine? Keep out of the reach of children. Store at room temperature, below 30 degrees C (86 degrees F). Protect from light. Keep container tightly closed. Throw away any unused medicine after the expiration date. Taking this medicine after the expiration date can make you seriously ill. What should I tell my health care provider before I take this medicine? They need to know if you have any of these conditions: liver disease long exposure to sunlight like working outdoors stomach problems like colitis an unusual or allergic reaction to doxycycline, tetracycline antibiotics, other medicines, foods, dyes, or preservatives or trying to get breast-feeding What should I watch for while using this medicine? Tell your doctor or health infant childcare provider if your symptoms do not improve. Do not treat diarrhea with over the counter products. Contact your doctor if you have diarrhea that lasts more than 2 days or if it is severe and watery. Do not take this medicine just before going to bed. It may not dissolve properly when you lay down and can cause pain in your throat. Drink plenty of fluids while taking this medicine to also help reduce irritation in your throat. This medicine can make you more sensitive to the sun. Keep out of the sun. If you cannot avoid being in the sun, wear protective clothing and use sunscreen. Do not use sun lamps or tanning beds/booths. control pills may not work properly while you are taking this medicine. Talk to your doctor about using an extra method of control. If you are being treated for a sexually transmitted infection, avoid sexual contact until you have finished your treatment. Your sexual partner may also need treatment. Avoid antacids, aluminum, calcium, magnesium, and iron products for 4 hours before and 2 hours after taking a dose of this medicine. If you are using this medicine to prevent malaria, you should still protect yourself from contact with mosquitos. Stay in screened-in areas, use mosquito nets, keep your body covered, and use an insect repellent. You have been given the following additional information: Diabetic Hyperglycemia Hypertension, New (Begin Treatment) Hypokalemia Pneumonia (Adult) Furosemide Oral tablet Doxycycline Monohydrate Oral tablet Rest at home for two days. (Electronically signed by Hong Jose, 07/09/2016 22:55)
--- NOTE | 2016-07-09 22:55 | ED MED RECONCILIATION SUMMARY ---
Patient: JUANJOSE OSBORNE Medication Reconciliation Report [facility] VisitID: [id number] [address] [place] [address] 41y, M Registration Date/Time: 07/09/2016 Weight: 147.4 kg Height/Length: 70 in. BMI: 46.6 ALLERGIES: No Known Drug Allergy The patient's Home Medications are listed below: THE FOLLOWING MEDICATIONS NEED TO BE RECONCILED: Furosemide Oral 40 mg, 2x a day The source(s) of the original Home Medication information: patient The following Medications were given to the patient in the Emergency Department: Lasix [IVPB] IVPB bolus 0, then 100 mg 100 mL/hr, administered: 07/09/2016 4:16:00 PM Rocephin [IVPB] IVPB bolus 0, then 1 gm 50 mL/hr, administered: 07/09/2016 4:06:00 PM The following Medications were prescribed to the patient: Lasix 40 mg: take 1 orally every 12 hours. Dispense twenty (20). No refills. Substitution is permissible. -- Hong Jose Doxycycline 100 mg: Take 1 capsule orally every 12 hours for 10 days. No refill. -- Hong Jose Potassium Chloride 20 mEq: take 1 orally every 12 hours - Dispense twenty (20) No refills. -- Hong Jose
--- NOTE | 2016-07-09 22:55 | ED MAR SUMMARY ---
..... Medication Administration Record [facility] [address] [place] [address] Patient: JUANJOSE OSBORNE Visit ID: [id number] 41y, M Weight: 147.4 kg Height/Length: 70 in BMI: 46.6 ALLERGIES: No Known Drug Allergy Start 16:06 07/09/2016 Taty Mcconnell R.N., Stop 16:43 07/09/2016 Taty Mcconnell R.N. Medication Administered: ROCEPHIN [IVPB] (CEFTRIAXONE SODIUM), Dose: 1 gm IVPB over 20 minute(s), Rate: 50 mL/hr, Dispensed: 50 mL bag, Site: #1 left hand. Medication Ordered: Rocephin IV 1 gm/50mL (NOW). Start 16:16 07/09/2016 Taty Mcconnell R.N., Stop 16:42 07/09/2016 Taty Mcconnell R.N. Medication Administered: LASIX [IVPB], Dose: 100 mg IVPB over 15 minute(s), Rate: 100 mL/hr, Dispensed: 100 mL bag, Site: #1 left hand. Medication Ordered: Lasix IV 100 mg (NOW).
--- NOTE | 2016-07-09 22:55 | ED MED RECONCILIATION SUMMARY ---
Patient: JUANJOSE OSBORNE Medication Reconciliation Report [facility] VisitID: [id number] [address] [place] [address] 41y, M Registration Date/Time: 07/09/2016 Weight: 147.4 kg Height/Length: 70 in. BMI: 46.6 ALLERGIES: No Known Drug Allergy The patient's Home Medications are listed below: THE FOLLOWING MEDICATIONS NEED TO BE RECONCILED: Furosemide Oral 40 mg, 2x a day The source(s) of the original Home Medication information: patient The following Medications were given to the patient in the Emergency Department: Lasix [IVPB] IVPB bolus 0, then 100 mg 100 mL/hr, administered: 07/09/2016 4:16:00 PM Rocephin [IVPB] IVPB bolus 0, then 1 gm 50 mL/hr, administered: 07/09/2016 4:06:00 PM The following Medications were prescribed to the patient: Lasix 40 mg: take 1 orally every 12 hours. Dispense twenty (20). No refills. Substitution is permissible. -- Hong Jose Doxycycline 100 mg: Take 1 capsule orally every 12 hours for 10 days. No refill. -- Hong Jose Potassium Chloride 20 mEq: take 1 orally every 12 hours - Dispense twenty (20) No refills. -- Hong Jose
== END 2016-07-09 19:05 | disposition home or self-care (01) ==
LOC: ED SRH 12:12
DX: J18.9 Pneumonia, unspecified organism (principal); R60.0 Localized edema; R80.9 Proteinuria, unspecified; R73.9 Hyperglycemia, unspecified; E87.6 Hypokalemia; I10 Essential (primary) hypertension; N48.89 Other specified disorders of penis; Z79.899 Other long term (current) drug therapy
CPT/HCPCS: 90004; 90100; 90616; 91320; 94001; 94060; 95059